=== PATIENT | female | born 2000 | race African-American/Black ===

== ENCOUNTER 2020-02-11 14:23 | Day surgery (SDC) | payer OTHER ==
[2020-02-11 15:50] LABS: #Eosinphils 0.1 thou/uL (0.0-0.7); #Lymphocytes 1.3 thou/uL (1.20-3.40); #Monocytes 0.9 thou/uL (0.11-0.59); #Neutrophils 7.9 thou/uL (1.40-6.50); %Basophils 0.3 % (0.0-1.0); %Eosinophils 1.1 % (0.0-10.0); %Lymphocytes 13.1 % (21.0-51.0); %Monocytes 8.5 % (0.0-10.0); Hemoglobin 11.2 g/dL (12.0-16.0); Mean Corpuscular HGB CONC 32.7 g/dL (32.0-36.0); Mean Corpuscular Hemoglobin 28.6 pg (27.0-31.0); Mean Corpuscular Volume 87.4 fL (78.0-98.0); Mean Platelet Volume 7.7 fL (7.4-10.4); Platelet Count 208 thou/uL (130-400); RBC Distribution Width 13.8 % (11.5-14.5); Red Blood Cell (RBC) Count 3.91 mill/uL (4.20-5.40); White Blood Cell (WBC) Count 10.3 thou/uL (4.8-10.8)
[2020-02-11 16:12] LABS: ALT (SGPT) 8 U/L (8-55); AST (SGOT) 13 U/L (5-34); Albumin 3.3 g/dL (3.5-5.0); Alkaline Phosphatase 146 U/L (40-110); Anion Gap 12 mmol/L (10-20); BUN (Urea Nitrogen) 6 mg/dL (7.0-18.7); Bilirubin, Total 0.3 mg/dL (0.2-1.2); Calc. Creatinine Clearance 0 mL/min (70-130); Carbon Dioxide 21 mmol/L (22-29); Chloride 107 mmol/L (98-107); Estimated GFR-MDRD Greater than 90; Globulin 3.3 g/dL (2.4-3.5); Glucose 93 mg/dL (70-105); Protein, Total 6.6 g/dL (6.0-8.3); Sodium 136 mmol/L (136-145)
--- NOTE | 2020-02-11 17:47 | CT ---
CT PULMONARY ANGIOGRAM WITH IV CONTRAST AND 3D MIP RECONSTRUCTIONS 02/11/20 PROVIDED CLINICAL HISTORY: Chest pain. FINDINGS: Evaluation is limited by patient body habitus and resultant imaging noise. There is no evidence for c entral or segmental pulmonary embolus. The heart, pericardium, and great vessels demonstrate an unrem arkable CT appearance. The lungs are free of significant opacity. The airway appears patent and of no rmal caliber. There is no pleural fluid, or pneumothorax apparent. The visualized portions of the upp er abdomen appear unremarkable. The osseous structures demonstrate no concerning lytic or blastic les ions. IMPRESSION: No evidence for central or segmental pulmonary embolus. POS: NURYS
[2020-02-11] MEDS ORDERED: hydrALAZINE 20 MG/ML VIAL SLOW IVP PRN (18:50)
[2020-02-11 19:39] VITALS: BP 137/65; TEMP 99.1; BMI 46.3
--- NOTE | 2020-02-11 20:05 | PDOC.LDHP ---
Labor and Delivery H&P Chief complaint: other HPI: 19 y/o at 38w4d, patient of Dr. Srinivasan, presents for NST after being seen in ED for chest pain. Patient was cleared for CP complaints. Is having some abdominal tightening and pain but denies VB, LOF, or decreased FM. ROS neg for HEENT, cv, pulm, gi, gu, neuro, psych, skin, musculoskeletal or constitutional symptoms other than mentioned above. OB History Details: 1 prior Current complications: none Past Medical History: Obesity Current medications: pre-brian vitamins Previous surgical history: other (tonsillectomy) Allergies/Adverse Reactions: Allergies Allergy/AdvReac Type Severity Reaction Status Date / Time No Known Allergies Allergy Unverified 02/11/20 19:26 Social history: none - Physical Exam Vital signs reviewed and normal: yes General: NAD, resting Lungs: nonlabored breathing Abdomen: gravid Extremeties: no edema FHT: category 1 (135, mod variability, + accels, no decels) [employer] contractions every: irregular - Vaginal Exam cm dilated: 1 Effacement: 0% Station: -3 - Assessment 19 y/o at 38w4d with no e/o active labor. status reassuring with reactive NST. - Plan -: D/c home with precautions. Advised to keep appointment for induction on Friday.
== END 2020-02-11 20:10 | disposition home or self-care (01) ==
LOC: ERS 14:23 → L&D/OP 18:43
PROVIDERS: ATTEND Family Medicine
DX: O99.89 Other specified diseases and conditions complicating pregnancy, childbirth and the puerperium (principal); R07.9 Chest pain, unspecified; R10.9 Unspecified abdominal pain; Z3A.38 38 weeks gestation of pregnancy
CPT/HCPCS: 71275; 80053; 84484; 85025; 93005

== ENCOUNTER 2020-02-15 19:12 | Inpatient (IN) | payer OTHER ==
[~2020-02-15 19:12] MED LIST: Bupivacaine PF 0.5% 30 ML VIAL ONE
[2020-02-15] MEDS ORDERED: Ondansetron PF 4 MG/2 ML Vial IVP PRN (19:33)
[2020-02-15] MEDS ORDERED: NS / Oxytocin 40 units/1000ml 1,000 ML IV PRN (19:33)
[2020-02-15] MEDS ORDERED: Lidocaine 1% (PF) 30 ML VIAL SC PRN (19:33)
[2020-02-15] MEDS ORDERED: Ibuprofen 800 MG TAB PO PRN (19:33)
[2020-02-15] MEDS ORDERED: Lactated Ringer's 1,000 ML IV SCH (19:33)
[2020-02-15] MEDS ORDERED: HYDROcodone/Acetaminophen 5/325 mg Tablet PO PRN ×2 (19:33)
[2020-02-15] MEDS ORDERED: Promethazine HCl 25 MG/ML VIAL IM PRN (19:33)
[2020-02-15] MEDS ORDERED: hydrALAZINE 20 MG/ML VIAL SLOW IVP PRN (19:33)
[2020-02-15 20:05] VITALS: BMI 46.3
[2020-02-15 20:31] LABS: Mean Corpuscular HGB CONC 33.3 g/dL (32.0-36.0); Mean Corpuscular Volume 87.1 fL (78.0-98.0); Mean Platelet Volume 8.4 fL (7.4-10.4); Platelet Count 245 thou/uL (130-400); RBC Distribution Width 13.9 % (11.5-14.5); Red Blood Cell (RBC) Count 3.78 mill/uL (4.20-5.40); White Blood Cell (WBC) Count 9.5 thou/uL (4.8-10.8)
[2020-02-15 21:01] LABS: Syphilis Antibody Nonreactive (Nonreactive); Syphilis Antibody Index 0.06 S/CO (<1.00 Non-Reactive)
[2020-02-15] MEDS: Misoprostol 100 MCG TAB VAG SCH (21:10)
[2020-02-15] MEDS: Lactated Ringer's 1,000 ML IV SCH (21:16)
[2020-02-15 22:40] LABS: HBSAg Index 0.17 S/CO (0-0.99); Hep B Surf Ag Non-Reactive S/CO (NonReactive)
[2020-02-15] MEDS: Butorphanol Tartrate 1 MG/ML VIAL SLOW IVP PRN (23:18)
[2020-02-16] MEDS: Butorphanol Tartrate 1 MG/ML VIAL SLOW IVP PRN (02:33)
[2020-02-16] MEDS ORDERED: Fentanyl 4 mcg/Bup 0.1% Cadd 100 ML ONE ×2 (04:27→13:58)
[2020-02-16] MEDS: Lactated Ringer's 1,000 ML IV SCH ×3 (04:30→16:40)
[2020-02-16] MEDS ORDERED: diphenhydrAMINE 50 MG/ML VIAL IVP PRN ×3 (05:55→22:15)
[2020-02-16] MEDS ORDERED: Naloxone HCl 0.4 mg/ml Vial IVP PRN ×4 (05:55→18:05)
[2020-02-16] MEDS ORDERED: Ondansetron PF 4 MG/2 ML Vial IVP PRN ×4 (05:55→22:15)
[2020-02-16] MEDS ORDERED: Acetaminophen 325 MG TAB PO PRN (05:55)
[2020-02-16] MEDS ORDERED: EPHEDRINE 25 MG/5 ML SYRINGE SLOW IVP PRN (05:55)
[2020-02-16] MEDS ORDERED: Lactated Ringer's 500 ML IV PRN (05:55)
[2020-02-16] MEDS ORDERED: Promethazine HCl 25 MG/ML VIAL IM PRN ×3 (05:55→22:15)
[2020-02-16] MEDS ORDERED: Communication Order-Pharmacy FS SCH ×2 (06:00→18:15)
[2020-02-16] MEDS ORDERED: Fentanyl 4 mcg/Bupivacaine 0.1% Cassette 100 ML EPIDURAL SCH (06:00)
[2020-02-16] MEDS: Misoprostol 100 MCG TAB VAG SCH ×5 (07:05→14:08)
[2020-02-16] MEDS: NS w/ Oxytocin 10 units 500 ML IV SCH ×2 (07:25→07:26)
[2020-02-16] MEDS ORDERED: Bicitra 30 ML UDCUP ONE (17:22)
[2020-02-16] MEDS ORDERED: PHENYLEPHRINE-NS 100 MCG/ML 10 ML SYRINGE ONE (17:54)
[2020-02-16] MEDS ORDERED: EPHEDRINE 25 MG/5 ML SYRINGE ONE (17:54)
[2020-02-16] MEDS ORDERED: Oxytocin 10 UNITS/ML VIAL ONE ×2 (17:59→18:34)
[2020-02-16] MEDS ORDERED: Ketorolac Tromethamine 30 MG/ML VIAL IVP PRN (18:05)
[2020-02-16] MEDS ORDERED: Promethazine HCl 25 MG SUPP PR PRN ×2 (18:05→22:15)
[2020-02-16] MEDS ORDERED: L&D-Morphine 4 MG/ML VIAL SLOW IVP PRN (18:05)
[2020-02-16] MEDS ORDERED: HYDROmorphone 2 MG/ML VIAL SLOW IVP PRN (18:05)
[2020-02-16] MEDS ORDERED: Ondansetron HCl/PF 4 MG/2 ML Vial IVP PRN (18:05)
[2020-02-16] MEDS ORDERED: Naloxone HCl 0.4 mg/ml Vial IV PRN ×4 (18:05→22:15)
[2020-02-16] MEDS ORDERED: Meperidine HCl/PF 25 MG/ML VIAL SLOW IVP PRN (18:05)
[2020-02-16] MEDS ORDERED: Ondansetron PF 4 MG/2 ML Vial ONE (18:07)
[2020-02-16] MEDS ORDERED: MORPHINE 5 MG/10 ML PF VIAL ONE (18:07)
[2020-02-16] MEDS ORDERED: Ketorolac Tromethamine 30 MG/ML VIAL IVP SCH (18:15)
--- NOTE | 2020-02-16 18:53 | OP ---
DATE OF PROCEDURE: 02/16/2020 PREOPERATIVE DIAGNOSIS: Failure to progress at 5 cm despite adequate MVUs of greater than 250 for more than 4 hours. POSTOPERATIVE DIAGNOSES: Failure to progress at 5 cm despite adequate MVUs of greater than 250 for more than 4 hours plus suspected macrosomia. PROCEDURE PERFORMED: Primary low transverse section without extension. SUPERVISOR FERTILIZER: Soniya Catherine MD, PGY-3. ANESTHESIA: Epidural, Efrain Fairchild MD ESTIMATED BLOOD LOSS: QBL pending, by observation less than 1000 mL. MEDICATIONS: 2 g Ancef preincision. DVT PROPHYLAXIS: SCDs. SPECIMENS REMOVED: Placenta with three-vessel cord. OPERATIVE FINDINGS: 1. Vigorous female infant, cephalic presentation, Apgars and weight pending to nursery. 2. Normal-appearing uterus, tubes, and ovaries bilaterally. 3. Hemostasis, clear urine. COUNTS: Correct at the end of the procedure. DISPOSITION: Recovery room in good condition. DESCRIPTION OF PROCEDURE: After obtaining appropriate informed consent, the patient was taken to the operating room. Epidural had been dosed to the appropriate level. The patient was prepped and draped. Low-transverse Pfannenstiel incision made, carried through the subcu down to the fascia in the midline, incised sharply, extended superiorly and laterally with curved Ortega scissors. Rectus was dissected off sharply superiorly and inferiorly, divided in the midline, peritoneum entered bluntly taking care to avoid trauma to the underlying viscera. David O retractor placed inside. Low-transverse hysterotomy incision made just above the level of vesicouterine peritoneal fold, extended superiorly and laterally with finger fractionation. The 's head elevated to hysterotomy. Rest of the delivered, suctioned, cord clamped and cut, handed off to the team in attendance. Usual cord blood sample obtained. Placenta removed manually. Uterus left in situ. Hysterotomy noted without extension, closed in a running locking #1 Monocryl suture x2. Good hemostasis noted. Gutters were irrigated out. Re-inspection of the hysterotomy revealed it to be dry. David O retractor was removed. Rectus was inspected and noted to be dry. Fascia reapproximated using a running continuous 0 PDS suture x2. Subcutaneous tissue irrigated, rendered hemostatic with Bovie cautery, reapproximated using a 2-0 plain gut. Skin reapproximated using a 4-0 Monocryl and Dermabond. The patient was taken to recovery room in good condition. Job ID: [id number]
[2020-02-16] MEDS ORDERED: Meperidine HCl/PF 25 MG/ML VIAL ONE (21:04)
[2020-02-16] MEDS ORDERED: Bisacodyl 10 MG SUPP PR PRN (21:56)
[2020-02-16] MEDS ORDERED: Lanolin Ointment 7 GM TUBE TOP PRN (21:56)
[2020-02-16] MEDS ORDERED: Simethicone Chewable 80 MG TAB PO PRN (21:56)
[2020-02-16] MEDS ORDERED: diphenhydrAMINE 25 MG CAP PO PRN (21:56)
[2020-02-16] MEDS ORDERED: NS / Oxytocin 40 units/1000ml 1,000 ML IV SCH (21:56)
[2020-02-16] MEDS ORDERED: hydrALAZINE 20 MG/ML VIAL SLOW IVP PRN (21:56)
[2020-02-16] MEDS ORDERED: Adacel (T-DAP) 0.5 ML SYRINGE IM ONE (21:56)
[2020-02-16] MEDS: Ketorolac Tromethamine 30 MG/ML VIAL IVP PRN (22:00)
[2020-02-16] MEDS ORDERED: Hydrocerin (Eucerin) Cream 120 gm Jar TOP PRN (22:15)
[2020-02-16] MEDS ORDERED: NO PO,IM,IV OR SC NARCOTICS FOR 12HR EXCEPT BY ANESTHESIA PO SCH (22:15)
[2020-02-17] MEDS: Ketorolac Tromethamine 30 MG/ML VIAL IVP PRN (04:23)
[2020-02-17] MEDS: Ibuprofen 800 MG TAB PO SCH ×4 (04:24→21:52)
[2020-02-17 05:32] LABS: Hemoglobin 10.7 g/dL (12.0-16.0); Mean Corpuscular HGB CONC 32.2 g/dL (32.0-36.0); Mean Corpuscular Hemoglobin 28.4 pg (27.0-31.0); Mean Platelet Volume 8.4 fL (7.4-10.4); Platelet Count 204 thou/uL (130-400); RBC Distribution Width 13.9 % (11.5-14.5); Red Blood Cell (RBC) Count 3.78 mill/uL (4.20-5.40)
[2020-02-17] MEDS ORDERED: Zolpidem Tartrate 5 MG TAB PO PRN (06:15)
[2020-02-17] MEDS ORDERED: HYDROcodone/Acetaminophen 5/325 mg Tablet PO PRN (06:15)
[2020-02-17] MEDS: Misoprostol 100 MCG TAB VAG SCH (08:06)
[2020-02-17] MEDS: Prenatal Vitamin 1 TAB PO SCH (08:37)
[2020-02-17] MEDS: Docusate Calcium (SURFAK) 240 MG CAP PO SCH ×2 (08:37→21:53)
[2020-02-17] MEDS: HYDROcodone/Acetaminophen 5/325 mg Tablet PO PRN ×4 (09:35→22:38)
[2020-02-18] MEDS: HYDROcodone/Acetaminophen 5/325 mg Tablet PO PRN ×3 (03:36→11:58)
[2020-02-18] MEDS: Ibuprofen 800 MG TAB PO SCH (05:08)
[2020-02-18] MEDS: Prenatal Vitamin 1 TAB PO SCH (07:50)
[2020-02-18] MEDS: Docusate Calcium (SURFAK) 240 MG CAP PO SCH (07:50)
[2020-02-18 12:02] VITALS: BP 122/58; TEMP 98.4
== END 2020-02-18 13:00 | disposition home or self-care (01) | DRG 788 ==
LOC: L&D 19:12 → 3SW 02-16 21:56
PROVIDERS: ADMIT Obstetrics & Gynecology; ATTEND Obstetrics & Gynecology
PROC: 10D00Z1 Extraction of Products of Conception, Low, Open Approach (ICD-10-PCS; principal; 2020-02-16)
DX: O32.4XX0 Maternal care for high head at term, not applicable or unspecified (principal); Z37.0 Single live birth; O36.63X0 Maternal care for excessive fetal growth, third trimester, not applicable or unspecified
CPT/HCPCS: 36415; 51702; 85027; 86780; 86850; 86900; 86901; 87340; J0595; J0690; J1885; J2175; J2274; J2405; J2590; S0020

== ENCOUNTER → 2021-06-07 | Day surgery (SDC) | payer OTHER ==
[~2021-06-07] MED LIST changes: -Bupivacaine PF 0.5% 30 ML VIAL ONE; +Fentanyl 100 MCG/2 ML VIAL ONE; +Lidocaine 1% PF 5 ML VIAL ONE; +Midazolam HCl 2 mg/2 ml Vial ONE; +Ondansetron PF 4 MG/2 ML Vial ONE; +PROPOFOL 200 MG/20 ML VIAL ONE; +Succinylcholine 200 MG/10 ml SYRINGE FS ONE
== END ==
LOC: ER/OP 03:46
PROVIDERS: ATTEND Emergency Medicine
PROC: 0RSMXZZ Reposition Left Elbow Joint, External Approach (ICD-10-PCS; principal; 2021-06-07)
DX: S53.195A Other dislocation of left ulnohumeral joint, initial encounter (principal); W18.30XA Fall on same level, unspecified, initial encounter
CPT/HCPCS: 76000; J2250; J2405; J2704; J3010